=== PATIENT | male | born 1945 | race Caucasian/White ===

== ENCOUNTER 2021-03-31 10:02 | Outpatient (CLI) | payer MEDICARE, OTHER ==
[2021-03-31 11:29] LABS: Hemoglobin 13.5 g/dL (13.5-17.5); Mean Corpuscular Hemoglobin 27.7 pg (27.0-33.0); Mean Platelet Volume 10.8 fl (7.4-10.4); Platelet Count 294 10x3/uL (150-450); RBC Distribution Width 13.9 % (11.5-14.5); Red Blood Cell (RBC) Count 4.87 10x6/uL (4.32-5.72); White Blood Cell (WBC) Count 8.3 10x3/uL (3.5-10.5)
[2021-03-31 11:51] LABS: Prothrombin Time 11.2 sec (9.5-12.1)
[2021-03-31 12:04] LABS: Anion Gap 20 mmol/L (10-20); BUN (Urea Nitrogen) 28 mg/dL (8.4-25.7); Calc. Creatinine Clearance 0 mL/min (70-130); Calcium 10.6 mg/dL (7.8-10.44); Carbon Dioxide 22 mmol/L (23-31); Chloride 97 mmol/L (98-107); Glucose 182 mg/dL (83-110); Sodium 135 mmol/L (136-145)
[2021-03-31 12:53] LABS: Bilirubin Neg (Negative); Blood, Urine 250 (Negative); Clarity Slightly Cloudy (Clear); Glucose, Urine (Dipstick) Normal (Negative); Ketone, Urine Negative (Negative); Leukocyte Negative (Negative); Nitrite Negative (Negative); Protein, Urine (Dipstick) 15 mg/dl (Neg-Trace); Urobilinogen Normal mg/dL (Less than 2)
[2021-03-31 13:27] LABS: Bacteria/HPF None Seen HPF (None Seen); Mucous/LPF 1+ LPF (<2+); RBC/HPF 21-50 HPF (0-3); Squamous Epithelial 0-3 HPF (0-3)
[2021-03-31 18:30] LABS: SARS-CoV-2 PCR by NAA Not Detected (NotDetected)
== END 2021-03-31 10:03 | disposition home or self-care (01) ==
LOC: LABBT 10:02
PROVIDERS: ATTEND Urology
DX: Z01.818 Encounter for other preprocedural examination (principal); C61 Malignant neoplasm of prostate; N39.498 Other specified urinary incontinence; N28.1 Cyst of kidney, acquired; N39.41 Urge incontinence; N32.0 Bladder-neck obstruction; Z20.822 Contact with and (suspected) exposure to COVID-19
CPT/HCPCS: 80048; 81001; 85027; 85610; 85730; 87086; U0003; U0005

== ENCOUNTER 2021-04-05 09:10 | Day surgery (SDC) | payer MEDICARE, OTHER ==
[2021-04-04 11:12] VITALS: BMI 31.4
[2021-04-05] MEDS ORDERED: cefTRIAXone\\ROCEPHIN 2 GM VIAL ONE (10:20)
[2021-04-05] MEDS ORDERED: Sodium Chloride 0.9% 100 ML ONE (10:34)
[2021-04-05] MEDS ORDERED: Fentanyl 100 MCG/2 ML VIAL ONE (13:13)
[2021-04-05] MEDS ORDERED: Midazolam HCl 2 mg/2 ml Vial ONE (13:14)
[2021-04-05] MEDS ORDERED: ePHEDrine 50 MG/ML VIAL ONE (13:23)
[2021-04-05] MEDS ORDERED: Ondansetron PF 4 MG/2 ML Vial ONE (13:23)
[2021-04-05] MEDS ORDERED: Lidocaine 1% PF 5 ML VIAL ONE (13:23)
[2021-04-05] MEDS ORDERED: PROPOFOL 200 MG/20 ML VIAL ONE (13:23)
[2021-04-05] MEDS ORDERED: Dexamethasone 20 MG/5 ML VIAL ONE (13:23)
[2021-04-05] MEDS ORDERED: Phenazopyridine HCl 100 MG TAB ONE (14:16)
[2021-04-05] MEDS ORDERED: Oxybutynin 5 MG TAB ONE (14:16)
== END 2021-04-05 17:15 | disposition home or self-care (01) ==
LOC: SDC 09:10
PROVIDERS: ATTEND Urology
PROC: 0TCB8ZZ Extirpation of Matter from Bladder, Via Natural or Artificial Opening Endoscopic (ICD-10-PCS; principal; 2021-04-05)
DX: N21.0 Calculus in bladder (principal); N32.0 Bladder-neck obstruction; N30.40 Irradiation cystitis without hematuria; N52.9 Male erectile dysfunction, unspecified; N28.1 Cyst of kidney, acquired; N39.41 Urge incontinence; I10 Essential (primary) hypertension; E78.5 Hyperlipidemia, unspecified; Z85.46 Personal history of malignant neoplasm of prostate; Z87.891 Personal history of nicotine dependence; Z79.84 Long term (current) use of oral hypoglycemic drugs; Z79.899 Other long term (current) drug therapy; Z88.1 Allergy status to other antibiotic agents; Z88.2 Allergy status to sulfonamides; Z91.041 Radiographic dye allergy status
CPT/HCPCS: 82365; 88300; J0696; J1100; J2250; J2405; J2704; J3010; J3490

== ENCOUNTER 2022-03-29 10:50 | Outpatient (CLI) | payer MEDICARE, OTHER | END 2022-03-29 10:51 | disposition home or self-care (01) | LOC: BICULT 10:50 | PROVIDERS: ATTEND Urology | DX: N20.0 Calculus of kidney (principal); N28.1 Cyst of kidney, acquired; Z98.890 Other specified postprocedural states | CPT/HCPCS: 74018; 76770 ==

== ENCOUNTER 2022-05-09 09:14 | Outpatient (CLI) | payer MEDICARE, OTHER | END 2022-05-09 09:15 | disposition home or self-care (01) | LOC: NM 09:14 | PROVIDERS: ATTEND Specialist | DX: E34.9 Endocrine disorder, unspecified (principal) | CPT/HCPCS: 78072; A9500 ==

== ENCOUNTER 2022-10-16 12:57 | Outpatient (CLI) | payer MEDICARE, OTHER | END 2022-10-16 12:58 | disposition home or self-care (01) | LOC: BICRAD 12:57 | PROVIDERS: ATTEND Urology | DX: C61 Malignant neoplasm of prostate (principal); N28.1 Cyst of kidney, acquired; N20.0 Calculus of kidney; N39.498 Other specified urinary incontinence | CPT/HCPCS: 36415; 74018; 80048; 81001; 84153 ==